=== PATIENT | male | born 1965 | race Hispanic/Latino ===

== ENCOUNTER 2018-07-14 15:32 | Emergency (ER) | payer BC ==
[~2018-07-14] VITALS: Ht 154.9 cm; Wt 74.4 kg
--- OUTSIDE RECORDS SUMMARY | 2018-07-14 15:33 | XMS REPORT | Clinical Summary ---
Author Author [facility] Address Unknown Phone Unavailable Care Team Providers Care Tax Assessor Name Role Phone Asked, No Pcp PCP Unavailable Allergies Comments Active Allergy Reactions Severity Noted Date Shellfish Derived Hives 03/05/2018 Medications End Date Status Medication Sig Dispensed Refills Start Date 04/05/2018 ondansetron (ZOFRAN) 4 MG Take 1 tablet 120 tablet 0 tablet (4 mg total) 8 by mouth every 6 (six) hours for 30 days. Active Problems Not on file Encounters Care Team Description Date Type Specialty Lauren Garcia MD Gastroenteritis (Primary Dx) 03/05/2018 Emergency Emergency Medicine - 03/06/2018 after 07/13/2017 Social History Date Tobacco Use Types Packs/Day Years Used Never Smoker Alcohol Use Drinks/Week oz/Week Comments Yes socially Sex Assigned at Date Recorded Not on file Industry Job Start Date Occupation Not on file Not on file Not on file Travel End Travel History Travel Start No recent travel history available. Last Filed Vital Signs Time Taken Vital Sign Reading 03/06/2018 2:23 AM [employer]FORMAT[employer] DEVELOPER Blood Pressure 137/70 03/06/2018 2:23 AM INFORMATICS DEVELOPER Pulse 79 03/05/2018 11:31 PM [employer] DEVELOPER Temperature 36.8 C (98.2 F) 03/06/2018 2:23 AM INFORMATICS DEVELOPER Respiratory Rate 16 03/06/2018 2:23 AM INFORMATICS DEVELOPER Oxygen Saturation 98% - Inhaled Oxygen - Concentration 03/05/2018 11:31 PM [employer]FORMATICS DEVELOPER Weight 83.9 kg (185 lb) 03/05/2018 11:31 PM [employer]ICS DEVELOPER Height 152.4 cm (5') 03/05/2018 11:31 PM INFORMATICS DEVELOPER Body Mass Index 36.13 Plan of Treatment Health Maintenance Due Date Last Done Comments COLON CANCER SCREENING 2013 SHINGLES VACCINES (#1) 2013 INFLUENZA VACCINE 11/30/2017 Procedures Comments Procedure Name Priority Date/Time Associated Diagnosis CT ABDOMEN PELVIS WO STAT 03/06/2018 CONTRAST 1:31 AM INFORMATICS DEVELOPER ESTIMATED GFR STAT 03/06/2018 12:19 AM INFORMATICS DEVELOPER LIPASE LEVEL STAT 03/06/2018 12:19 AM INFORMATICS DEVELOPER AMYLASE LEVEL STAT 03/06/2018 12:19 AM INFORMATICS DEVELOPER COMPREHENSIVE METABOLIC STAT 03/06/2018 PANEL 12:19 AM INFORMATICS DEVELOPER URINALYSIS SCREEN AND STAT 03/06/2018 MICROSCOPY, WITH REFLEX 12:19 AM INFORMATICS DEVELOPER TO CULTURE HC COMPLETE BLD COUNT STAT 03/06/2018 W/AUTO DIFF 12:19 AM INFORMATICS DEVELOPER URINE CULTURE STAT 03/06/2018 12:19 AM INFORMATICS DEVELOPER after 07/13/2017 Results * CT Abdomen Pelvis Wo Contrast (03/06/2018 1:31 AM INFORMATICS DEVELOPER) Narrative Performed At CT ABDOMEN PELVIS WO CONTRAST RADIANT CLINICAL INDICATION:Abd painunspecified TECHNIQUE:Multidetector CT of the abdomen and pelvis was performed without intravenous contrast with multiplanar reconstructions. CT imaging was performed with iterative reconstruction technique and/or automated exposure control to reduce radiation dose. COMPARISON:None FINDINGS: Please note, the lack of intravenous and oral contrast limits evaluation of the abdominal and pelvic viscera. LOWER THORAX:Clear. LIVER:There is hepatic steatosis with fatty sparing near the gallbladder fossa. BILIARY:Normal. SPLEEN:Normal. PANCREAS:Normal. ADRENALS:Normal. KIDNEYS:No mass or hydronephrosis. GI:Large and small bowel are normal in caliber.There are no inflammatory changes. VASCULAR:Unremarkable LYMPH NODES:No enlarged lymph nodes in the abdomen or pelvis. PELVIS:The urinary bladder is normal for degree of distention. BONES:There are no acute osseous abnormalities. OTHER:There is no ascites or pneumoperitoneum. IMPRESSION: No acute intra-abdominal abnormality is identified. [facility]-[id number] Procedure Note Interface, Radiology Results Incoming - 03/06/2018 1:[address] ABDOMEN PELVIS WO CONTRAST CLINICAL INDICATION: Abd pain unspecified TECHNIQUE: Multidetector CT of the abdomen and pelvis was performed without intravenous contrast with multiplanar reconstructions. CT imaging was performed with iterative reconstruction technique and/or automated exposure control to reduce radiation dose. COMPARISON: None FINDINGS: Please note, the lack of intravenous and oral contrast limits evaluation of the abdominal and pelvic viscera. LOWER THORAX: Clear. LIVER: There is hepatic steatosis with fatty sparing near the gallbladder fossa. BILIARY: Normal. SPLEEN: Normal. PANCREAS: Normal. ADRENALS: Normal. KIDNEYS: No mass or hydronephrosis. GI: Large and small bowel are normal in caliber. There are no inflammatory changes. VASCULAR: Unremarkable LYMPH NODES: No enlarged lymph nodes in the abdomen or pelvis. PELVIS: The urinary bladder is normal for degree of distention. BONES: There are no acute osseous abnormalities. OTHER: There is no ascites or pneumoperitoneum. IMPRESSION: No acute intra-abdominal abnormality is identified. [facility]-[id number] Performing Organization Address City/State/Zipcode Phone Number [facility] [address] [place] [address] * Urinalysis screen and microscopy, with reflex to culture (03/06/2018 12:19 AM INFORMATICS DEVELOPER) Specimen site Clean catch [facility] DEPARTMENT OF PATHOLOGY AND GENOMIC MEDICINE Color, UA Yellow [facility] DEPARTMENT OF PATHOLOGY AND GENOMIC MEDICINE Appearance, UA Turbid [facility] DEPARTMENT OF PATHOLOGY AND GENOMIC MEDICINE Specific gravity, UA 1.026 1.001 - 1.035 [facility] DEPARTMENT OF PATHOLOGY AND GENOMIC MEDICINE pH, UA 5.0 5.0 - 8.5 [facility] DEPARTMENT OF PATHOLOGY AND GENOMIC MEDICINE Protein, UA Negative Negative [facility] DEPARTMENT OF PATHOLOGY AND GENOMIC MEDICINE Glucose, UA 1+ (A) Negative [facility] DEPARTMENT OF PATHOLOGY AND GENOMIC MEDICINE Ketones, UA Negative Negative [facility] DEPARTMENT OF PATHOLOGY AND GENOMIC MEDICINE Bilirubin, UA Negative Negative [facility] DEPARTMENT OF PATHOLOGY AND GENOMIC MEDICINE Blood, UA Negative Negative [facility] DEPARTMENT OF PATHOLOGY AND GENOMIC MEDICINE Nitrite, UA Negative Negative [facility] DEPARTMENT OF PATHOLOGY AND GENOMIC MEDICINE Urobilinogen, UA Negative <2.0 [facility] DEPARTMENT OF PATHOLOGY AND GENOMIC MEDICINE Leukocyte esterase, UA Negative Negative [facility] DEPARTMENT OF PATHOLOGY AND GENOMIC MEDICINE Epithelial cells, UA Few /HPF [facility] DEPARTMENT OF PATHOLOGY AND GENOMIC MEDICINE WBC, UA 0-5 0 - 1 /HPF [facility] DEPARTMENT OF PATHOLOGY AND GENOMIC MEDICINE RBC, UA 11-20 (H) 0 - 5 /HPF [facility] DEPARTMENT OF PATHOLOGY AND GENOMIC MEDICINE Bacteria, UA None seen None seen [facility] DEPARTMENT OF PATHOLOGY AND GENOMIC MEDICINE Yeast, UA None seen [facility] DEPARTMENT OF PATHOLOGY AND GENOMIC MEDICINE Yeast with pseudohyphae, None seen [facility] DEPARTMENT OF PATHOLOGY AND GENOMIC MEDICINE Amorphous crystals Few [facility] DEPARTMENT OF PATHOLOGY AND GENOMIC MEDICINE Ammonium biurate crystals Many [facility] DEPARTMENT OF PATHOLOGY AND GENOMIC MEDICINE Specimen Urine Performing Organization Address City/[facility]/Zipcode Phone Number [address] [place] [address] PATHOLOGY AND GENOMIC MEDICINE * Estimated GFR (03/06/2018 12:19 AM INFORMATICS DEVELOPER) Estimated GFR 75 mL/min/1.73 m2 [facility] DEPARTMENT OF Comment: PATHOLOGY AND CatergoryUnitsInte GENOMIC MEDICINE rpretation G1 >=90 Normal or high G2 60-89Mildly decreased [id number] Mildly to moderately decreased [id number] Moderately to severely decreased G4 15-29Severely decreased G5 <15Kidney failure The eGFR was calculated using the Chronic Kidney Disease Epidemiology Collaboration (CKD-EPI) equation. Interpretation is based on recommendations of the National Kidney Foundation-Kidney Disease Outcomes Quality Initiative (NKF-KDOQI) published in 2014. Specimen Plasma specimen Performing Organization Address City/[facility]/Zipcode Phone Number [address] [place] [phone] PATHOLOGY [facility] * CBC with platelet and differential (03/06/2018 12:19 AM INFORMATICS DEVELOPER) WBC 9.43 4.50 - 11.00 k/uL [facility] DEPARTMENT OF PATHOLOGY AND GENOMIC MEDICINE RBC 5.45 4.40 - 6.00 m/uL [facility] DEPARTMENT OF PATHOLOGY AND GENOMIC MEDICINE HGB 15.5 14.0 - 18.0 g/dL [facility] DEPARTMENT OF PATHOLOGY AND GENOMIC MEDICINE HCT 44.1 41.0 - 51.0 % [facility] DEPARTMENT OF PATHOLOGY AND GENOMIC MEDICINE MCV 80.9 (L) 82.0 - 100.0 fL [facility] DEPARTMENT OF PATHOLOGY AND GENOMIC MEDICINE MCH 28.4 27.0 - 34.0 pg [facility] DEPARTMENT OF PATHOLOGY AND GENOMIC MEDICINE MCHC 35.1 31.0 - 37.0 g/dL [facility] DEPARTMENT OF PATHOLOGY AND GENOMIC MEDICINE RDW - SD 36.5 (L) 37.0 - 55.0 fL [facility] DEPARTMENT OF PATHOLOGY AND GENOMIC MEDICINE MPV 9.9 8.8 - 13.2 fL [facility] DEPARTMENT OF PATHOLOGY AND GENOMIC MEDICINE Platelet count 277 150 - 400 k/uL [facility] DEPARTMENT OF PATHOLOGY AND GENOMIC MEDICINE Nucleated RBC 0.00 /100 WBC [facility] DEPARTMENT OF PATHOLOGY AND GENOMIC MEDICINE Neutrophils 79.9 (H) 39.0 - 69.0 % [facility] DEPARTMENT OF PATHOLOGY AND GENOMIC MEDICINE Lymphocytes 12.5 (L) 25.0 - 45.0 % [facility] DEPARTMENT OF PATHOLOGY AND GENOMIC MEDICINE Monocytes 5.3 0.0 - 10.0 % [facility] DEPARTMENT OF PATHOLOGY AND GENOMIC MEDICINE Eosinophils 1.8 0.0 - 5.0 % [facility] DEPARTMENT OF PATHOLOGY AND GENOMIC MEDICINE Basophils 0.2 0.0 - 1.0 % [facility] DEPARTMENT OF PATHOLOGY AND GENOMIC MEDICINE Specimen Blood Performing Organization Address [facility] Phone Number [address] [place] [address] PATHOLOGY [facility] * Urine culture (03/06/2018 12:19 AM INFORMATICS DEVELOPER) Urine culture SEE COMMENTComment: [facility] DEPARTMENT OF Bacteriuria screen negative. PATHOLOGY AND GENOMIC MEDICINE Specimen Urine Performing Organization Address [facility] Phone Number [address] [place] [address] PATHOLOGY [facility] * Lipase level (03/06/2018 12:19 AM INFORMATICS DEVELOPER) Lipase 44 13 - 60 U/L [facility] DEPARTMENT OF PATHOLOGY AND GENOMIC MEDICINE Specimen Plasma specimen Performing Organization Address [facility] Phone Number [address] [place] [address] PATHOLOGY [facility] * Amylase level (03/06/2018 12:19 AM INFORMATICS DEVELOPER) Amylase 95 (H) 13 - 73 U/L [facility] DEPARTMENT OF PATHOLOGY AND GENOMIC MEDICINE Specimen Plasma specimen Performing Organization Address [facility] Phone Number [address] [place] [address] PATHOLOGY [facility] * Comprehensive metabolic panel (03/06/2018 12:19 AM INFORMATICS DEVELOPER) Sodium 139 135 - 148 mEq/L [facility] DEPARTMENT OF PATHOLOGY AND GENOMIC MEDICINE Potassium 4.0 3.5 - 5.0 mEq/L [facility] DEPARTMENT OF PATHOLOGY AND GENOMIC MEDICINE Chloride 101 98 - 112 mEq/L [facility] DEPARTMENT OF PATHOLOGY AND GENOMIC MEDICINE CO2 23 (L) 24 - 31 mEq/L [facility] DEPARTMENT OF PATHOLOGY AND GENOMIC MEDICINE Anion gap 15@ANIO 7 - 15 mEq/L [facility] DEPARTMENT OF PATHOLOGY AND GENOMIC MEDICINE BUN 22 (H) 6 - 20 mg/dL [facility] DEPARTMENT OF PATHOLOGY AND GENOMIC MEDICINE Creatinine 1.10 0.70 - 1.20 mg/dL [facility] DEPARTMENT OF PATHOLOGY AND GENOMIC MEDICINE Glucose 230 (H) 65 - 99 mg/dL [facility] DEPARTMENT OF PATHOLOGY AND GENOMIC MEDICINE Calcium 9.5 8.3 - 10.2 mg/dL [facility] DEPARTMENT OF PATHOLOGY AND GENOMIC MEDICINE Protein 8.0 6.3 - 8.3 g/dL [facility] DEPARTMENT OF Comment: PATHOLOGY AND GENOMIC MEDICINE 4.6-7.0 g/dL 1 week 4.4-7.6 g/dL 7 months-1year 5.1-7.3 g/dL 1-2 years5.6-7 .5 g/dL >3 years6.0-8 .0 g/dL 18-150 6.3-8.3 g/dL Albumin 4.9 3.5 - 5.0 g/dL [facility] DEPARTMENT OF PATHOLOGY AND GENOMIC MEDICINE A/G ratio 1.6 0.7 - 3.8 [facility] DEPARTMENT OF PATHOLOGY AND GENOMIC MEDICINE Alkaline phosphatase 37 (L) 40 - 129 U/L [facility] DEPARTMENT OF PATHOLOGY AND GENOMIC MEDICINE AST 23 10 - 50 U/L [facility] DEPARTMENT OF PATHOLOGY AND GENOMIC MEDICINE ALT 42 5 - 50 U/L [facility] DEPARTMENT OF PATHOLOGY AND GENOMIC MEDICINE Total bilirubin 0.8 0.0 - 1.2 mg/dL [facility] DEPARTMENT OF PATHOLOGY AND GENOMIC MEDICINE Specimen Plasma specimen Performing Organization Address City/State/Zipcode Phone Number [facility] [address] [place] [address] PATHOLOGY AND GENOMIC MEDICINE after 07/13/2017 Insurance Payer Benefit Subscriber ID Type Phone Address Plan / Group BCBS BCBS xxxxxxxxxxxx PPO CHOICE PPO/[employer] PPO Advance Directives Patient has advance care planning documents on file. For more information, donte pang contact: Dangelo Fontaine [address] [place] [address]
[2018-07-14] MEDS ORDERED: ONDANSETRON HCL INJ 2MG/ML 2ML 2 MG/ML VIAL IV STA (16:21)
[2018-07-14] MEDS ORDERED: KETOROLAC TROMETHAMINE 30 MG/ML VIAL IV STA (16:21)
[2018-07-14] MEDS ORDERED: SODIUM CHLORIDE 0.9% 1000ML 1,000 ML IV SCH ×2 (16:30→17:00)
[2018-07-14] MEDS ORDERED: SIMVASTATIN40 MG PO (16:36)
[2018-07-14] MEDS ORDERED: FENOFIBRATE145 MG (16:37)
[2018-07-14] MEDS ORDERED: OMEPRAZOLE40 MG (16:38)
[2018-07-14] MEDS ORDERED: REVATIO20 MG PO (16:40)
[2018-07-14] MEDS ORDERED: ZYRTEC10 M3 (16:41)
[2018-07-14] MEDS ORDERED: ANDROGEL2.5 GM (16:42)
[2018-07-14] MEDS ORDERED: POTASSIUM CHLORIDE 20 MEQ TAB CR PO ONE (17:15)
--- NOTE | 2018-07-14 17:33 | Diagnostic Imaging Report ---
EXAM: CT Abdomen and Pelvis WITHOUT contrast INDICATION: Chest pain dehydration. Abdominal pain. COMPARISON: None. TECHNIQUE: Abdomen and pelvis were scanned utilizing a multidetector helical scanner from the lung base to the pubic symphysis without administration of IV contrast. Absence of intravenous contrast decreases sensitivity for detection of focal lesions and vascular pathology. Coronal and sagittal reformations were obtained. Routine protocol was performed. IV CONTRAST: None ORAL CONTRAST: Water COMPLICATIONS: None RADIATION DOSE: Total DLP: 687.14 mGy*cm Estimated effective dose: (DLP x 0.015 x size factor) mSv CTDIvol has been reviewed. It is below the limits set by the Radiation Protocol Committee (RPC). Dose modulation, iterative reconstruction, and/or weight based adjustment of the mA/kV was utilized to reduce the radiation dose to as low as reasonably achievable. FINDINGS: LINES and TUBES: None. LOWER THORAX: Unremarkable HEPATOBILIARY: The liver is diffuse hypodense compared to the spleen, consistent with diffuse hepatic diffuse hepatic steatosis. No focal hepatic lesions. No biliary ductal dilation. GALLBLADDER: No radio-opaque stones or sludge. No wall thickening. SPLEEN: No splenomegaly. PANCREAS: No focal masses or ductal dilatation. ADRENALS: No adrenal nodules KIDNEYS/URETERS: No hydronephrosis. No cystic or solid mass lesions. No stones. GI TRACT: Mild distal esophageal wall thickening. No abnormal distention, wall thickening, or evidence of bowel obstruction. Appendix is normal. PELVIC ORGANS/BLADDER: Unremarkable. LYMPH NODES: No lymphadenopathy. VESSELS: Unremarkable. PERITONEUM / RETROPERITONEUM: No free air or fluid. BONES: Unremarkable. SOFT TISSUES: Unremarkable. IMPRESSION: 1. Mild distal esophageal wall thickening, correlate for esophagitis. 2. Diffuse hepatic steatosis. 3. No acute abnormalities in the abdomen or pelvis. Signed by: Dr. Santana Street M.D. on 07/14/2018 5:30 PM
[2018-07-14 18:56] VITALS: BP 128/77
== END 2018-07-14 19:02 | disposition home or self-care (01) ==
LOC: FSED 15:32
DX: R10.31 Right lower quadrant pain (principal); R10.32 Left lower quadrant pain; R11.2 Nausea with vomiting, unspecified; R19.7 Diarrhea, unspecified; A08.4 Viral intestinal infection, unspecified; E11.9 Type 2 diabetes mellitus without complications; E78.00 Pure hypercholesterolemia, unspecified; J45.909 Unspecified asthma, uncomplicated
CPT/HCPCS: 74176; 80053; 81003; 85025; 99284; J1885; J2405